=== PATIENT | female | born 1990 | race Caucasian/White ===

== ENCOUNTER → 2023-04-11 | Outpatient (CLI) | payer OTHER ==
[~2023-04-11] MED LIST: ALBU90I INH; ALBU90OI; ALBU90OI INH; ALBU90OI6 INH; ALBU90OI61 INH; AZIT250 PO; CEPH500 PO; CIPR500 PO; CODACE30 PO; CRUTCH4 USE; DIVA125; DIVA125 PO; HYDACE5 PO; IBUP400 PO; IBUP600 PO; IBUP800 PO; MEDR150I IM; NAPR250 PO; PROM25 PO; RXHYDACE PO; SERT50 PO; SILSUL1TC TOP; TOPI100 PO
[2023-04-11 13:30] LABS: BASOPHILS ABSOLUTE AUTO 0.04 K/mm3 (0.00-0.23); BASOPHILS PERCENT AUTO 1 % (0-2); EOSINOPHILS ABSOLUTE AUTO 0.16 K/mm3 (0.00-0.68); EOSINOPHILS PERCENT AUTO 2 % (0-6); Hematocrit 45.7 % (33.0-51.0); Hemoglobin 15.2 g/dL (11.5-16.0); IMMATURE GRAN ABSOLUTE AUTO 0.04 K/mm3 (0.00-0.10); IMMATURE GRAN PERCENT AUTO 1 % (0-1); LYMPHOCYTES ABSOLUTE AUTO 2.28 K/mm3 (0.84-5.20); LYMPHOCYTES PERCENT AUTO 26 % (21-46); MONOCYTES ABSOLUTE AUTO 0.54 K/mm3 (0.16-1.47); MONOCYTES PERCENT AUTO 6 % (4-13); Mean Corpuscular HGB 28.2 pg (26.0-34.0); Mean Corpuscular HGB Conc 33.3 g/dL (31.5-36.5); Mean Corpuscular Volume 85 fL (80-100); Mean Platelet Volume 11.2 fL (9.1-12.4); NEUTROPHILS ABSOLUTE AUTO 5.82 K/mm3 (1.96-9.15); NEUTROPHILS PERCENT AUTO 65 % (41-73); Platelet Count 287 K/mm3 (150-400); RDW Coefficient Variation 13.3 % (11.7-14.2); Red Blood Cell Count 5.39 M/mm3 (3.80-5.20); White Blood Cell Count 8.88 K/mm3 (4.00-11.30)
[2023-04-11 13:49] LABS: Albumin, Blood 3.8 g/dL (3.4-5.0); Albumin/Globulin Ratio 0.9 (0.8-1.8); Bilirubin, Total 0.4 mg/dL (0.1-1.0); Bun/Creatinine Ratio 10.8 (12.0-20.0); Creatinine, Blood 0.83 mg/dL (0.40-1.00); Globulin, Blood 4.3 g/dL (2.2-4.0); Potassium, Blood 3.5 mmol/L (3.5-5.5); Thyroid Stimulating Hormone 1.812 uIU/mL (0.360-4.800); Total Protein, Blood 8.1 g/dL (6.4-8.2)
== END ==
LOC: LAB SHORT 13:26 → LAB 13:26
PROVIDERS: Chiropractor
DX: R07.89 Other chest pain (principal); R06.00 Dyspnea, unspecified; R53.83 Other fatigue
CPT/HCPCS: 80053; 84443; 84484; 85025; 85379